=== PATIENT | male | born 1995 | race Caucasian/White ===

== ENCOUNTER 2022-05-04 23:34 | Emergency (ER) | payer SELFPAY ==
[2022-05-04] MEDS ORDERED: Diphtheria,Pertussis(Acell),Tetanus Vaccine 0.5 ML Syringe IM ONE (23:49)
[2022-05-04] MEDS ORDERED: Lidocaine 1% with EPINEPHrine 1:100,000 10 ML MDV INJECT ONE (23:49)
[2022-05-04] MEDS ORDERED: Cephalexin 500 MG Cap PO ONE ×2 (23:52)
== END 2022-05-05 00:30 | disposition home or self-care (01) ==
LOC: JD.ED 23:34
DX: S81.812A Laceration without foreign body, left lower leg, initial encounter (principal); Z23 Encounter for immunization; W26.8XXA Contact with other sharp object(s), not elsewhere classified, initial encounter; Y99.0 Civilian activity done for income or pay
CPT/HCPCS: 12002; 90471; 90715; 99282; A9270